=== PATIENT | female | born 1985 | race Caucasian/White ===

== ENCOUNTER 2017-07-28 11:38 | Emergency (ER) | payer OTHER ==
[~2017-07-28] VITALS: Ht 177.8 cm; Wt 93.0 kg
--- OUTSIDE RECORDS SUMMARY | 2017-07-28 11:42 | XMS REPORT | Clinical Summary ---
Author Author [facility] Organization [employer] Address Unknown Phone Unavailable Care Team Providers Care Claims Auditor Name Role Phone Santo Gay MD PCP Allergies Active Allergy Reactions Severity Noted Date Comments Prednisone Anaphylaxis High 03/24/2017 Methylprednisolone 05/20/2017 Current Medications Prescription Sig. Disp. Refills Start End Date Status Date metFORMIN (GLUCOPHAGE) Take 500 mg by mouth 2 Active 500 mg tablet (two) times a day with meals. For pcos NORGESTIMATE-ETHINYL Take by mouth daily. Active ESTRADIOL (TRINESSA, 28, ORAL) traMADol (ULTRAM) 50 mg Take 1-2 tablets by mouth 20 tablet 0 03/29/20 tablet every 6 hours as needed 17 17 for severe pain. ibuprofen (ADVIL,MOTRIN) Take 1 tablet (800 mg 21 tablet 0 03/24/20 04/23/20 800 MG tablet total) by mouth 3 (three) 17 17 times a day for 30 days. Active Problems Not on file Encounters Date Type Specialty Care Team Description 05/20/2017 Abstract Obstetrics and Gynecology Jihan Lester MD 03/24/2017 Emergency Emergency Medicine Germania Bhat MD Headache , unspecified headache type (Primary Dx) after 07/27/2016 Family History Medical History Relation Name Comments Breast cancer Maternal Grandmother Diabetes Maternal Grandmother Thyroid disease Maternal Grandmother Hypertension Mother Relation Name Status Comments Maternal Grandmother Mother Social History Tobacco Use Types Packs/Day Years Used Date Never Smoker Alcohol Use Drinks/Week oz/Week Comments No Sex Assigned at Date Recorded Not on file Last Filed Vital Signs Vital Sign Reading Time Taken Blood Pressure 118/67 03/24/2017 3:12 PM CDT Pulse 70 03/24/2017 3:12 PM CDT Temperature 36.6 C (97.9 F) 03/24/2017 3:12 PM CDT Respiratory Rate 18 03/24/2017 3:12 PM CDT Oxygen Saturation 99% 03/24/2017 3:12 PM CDT Inhaled Oxygen - - Concentration Weight - - Height 177.8 cm (5' 10") 03/24/2017 10:28 AM CDT Body Mass Index - - Plan of Treatment Health Maintenance Due Date Last Done Comments INFLUENZA VACCINE 01/25/2017 PAP SMEAR 09/07/2018 09/08/2015 Results * CT Head Wo Contrast (03/24/2017 1:39 PM) Specimen Performing Laboratory [facility] [address] [place] [address] Narrative EXAMINATION: CT HEAD WO CONTRAST CLINICAL HISTORY: HEADACHE COMPARISON:None TECHNIQUE: Noncontrast CT of the brain was performed from the skull base to the vertex. Both soft tissue and bone reconstruction algorithms are interpreted. CT imaging was performed with iterative reconstruction techniques and/or automated exposure control to reduce radiation dose. FINDINGS: No intracranial hemorrhage, extra-axial collection, or mass-effect is seen. No acute cortical infarct is identified. No hyperdense vessel is seen. Mucous retention cysts and bubbly secretions are noted within the right maxillary sinus. Mastoid air cells are clear. IMPRESSION: No acute intracranial abnormality identified. Bubbly secretions are noted within the right maxillary sinus. [facility]-[id number] Procedure Note Interface, Radiology Results Incoming - 03/24/2017 1:48 PM CDT EXAMINATION: CT HEAD WO CONTRAST CLINICAL HISTORY: HEADACHE COMPARISON: None TECHNIQUE: Noncontrast CT of the brain was performed from the skull base to the vertex. Both soft tissue and bone reconstruction algorithms are interpreted. CT imaging was performed with iterative reconstruction techniques and/or automated exposure control to reduce radiation dose. FINDINGS: No intracranial hemorrhage, extra-axial collection, or mass-effect is seen. No acute cortical infarct is identified. No hyperdense vessel is seen. Mucous retention cysts and bubbly secretions are noted within the right maxillary sinus. Mastoid air cells are clear. IMPRESSION: No acute intracranial abnormality identified. Bubbly secretions are noted within the right maxillary sinus. [id number] * Urinalysis screen and microscopy, with reflex to culture (03/24/2017 11:02 AM) Component Value Ref Range Specimen site Clean catch Color, UA Yellow Appearance, UA Slightly-Cloudy Specific gravity, UA 1.013 1.001 - 1.035 pH, UA 5.0 5.0 - 8.5 Protein, UA Negative Negative Glucose, UA Negative Negative Ketones, UA Negative Negative Bilirubin, UA Negative Negative Blood, UA Negative Negative Nitrite, UA Negative Negative Urobilinogen, UA Negative <2.0 Leukocyte esterase, UA Moderate (A) Negative Epithelial cells, UA Many /HPF Round epithelial cells, Few 0 - 1 /HPF UA WBC, UA 0-5 0 - 4 /HPF RBC, UA 0-5 0 - 2 /HPF Bacteria, UA Trace None seen Yeast, UA None seen Yeast with pseudohyphae, None seen UA Hyaline casts, UA 3-5 /LPF Specimen Performing Laboratory Urine [facility] DEPARTMENT OF PATHOLOGY AND GENOMIC MEDICINE [address] [place] [address] [place] [address] * Gram stain (03/24/2017 11:02 AM) Component Value Ref Range Gram stain result No WBC's Rare Gram positive rods Comment: Specimen Information Specimen Source: Urine Specimen Site: Clean catch Specimen Performing Laboratory Urine [facility] DEPARTMENT OF PATHOLOGY AND GENOMIC MEDICINE [address] [place] [address] * Urine culture (03/24/2017 11:02 AM) Component Value Ref Range Urine culture isolate Mixed Gram positive vipul 10-3 cfu/ml (A) Comment: Specimen Information Specimen Source: Urine Specimen Site: Clean catch Specimen Performing Laboratory Urine [facility] DEPARTMENT OF PATHOLOGY AND GENOMIC MEDICINE [address] [place] [address] * Estimated GFR (03/24/2017 10:35 AM) Component Value Ref Range GFR Non Af Amer 83 mL/min/1.73 m2 GFR Af Amer >90 mL/min/1.73 m2 Comment: Chronic kidney disease: <60 mL/min/1.73m2 Kidney failure: <15 mL/min/1.73m2 The estimated GFR is calculated from the IDMS-traceable Modification of Diet in Renal Disease Equation. The accuracy of the calculation is poor when the creatinine is normal. Calculated values >90 mL/min/1.73m2 are not reported. This equation has not been validated in children (<18 years), women, the elderly (>70 years), or ethnic groups other than Caucasians and Americans. Specimen Performing Laboratory Plasma specimen [facility] DEPARTMENT OF PATHOLOGY AND GENOMIC MEDICINE [address] [place] [address] [place] [address] * CBC with platelet and differential (03/24/2017 10:35 AM) Component Value Ref Range WBC 5.67 4.50 - 11.00 k/uL RBC 3.95 (L) 4.20 - 5.50 m/uL HGB 12.3 12.0 - 16.0 g/dL HCT 36.2 (L) 37.0 - 47.0 % MCV 91.6 82.0 - 100.0 fL MCH 31.1 27.0 - 34.0 pg MCHC 34.0 31.0 - 37.0 g/dL RDW - SD 42.6 37.0 - 55.0 fL MPV 10.1 8.8 - 13.2 fL Platelet count 224 150 - 400 k/uL Nucleated RBC 0.00 /100 WBC Neutrophils 59.4 39.0 - 69.0 % Lymphocytes 30.5 25.0 - 45.0 % Monocytes 5.3 0.0 - 10.0 % Eosinophils 3.9 0.0 - 5.0 % Basophils 0.7 0.0 - 1.0 % Immature granulocytes 0.2Comment: "Immature granulocytes" 0.0 - 1.0 % (promyelocytes, myelocytes, metamyelocytes) Specimen Performing Laboratory Blood [facility] DEPARTMENT OF PATHOLOGY AND GENOMIC MEDICINE [address] [place] [address] * hCG qualitative, serum screen (03/24/2017 10:35 AM) Component Value Ref Range hCG qualitative, serum Negative Specimen Performing Laboratory Blood [facility] DEPARTMENT OF PATHOLOGY AND [facility] [address] [place] [address] * Comprehensive metabolic panel (03/24/2017 10:35 AM) Component Value Ref Range Sodium 140 135 - 148 mEq/L Potassium 4.3 3.5 - 5.0 mEq/L Chloride 104 98 - 112 mEq/L CO2 24 24 - 31 mEq/L Anion gap 12 7 - 15 mEq/L Comment: Starting from September , anion gap calculation no longer incorporates potassium. Please note the change. BUN 14 6 - 20 mg/dL Creatinine 0.8 0.5 - 0.9 mg/dL Glucose 90 65 - 99 mg/dL Calcium 9.6 8.3 - 10.2 mg/dL Protein 7.9 6.3 - 8.3 g/dL Comment: 4.6-7.0 g/dL 1 week 4.4-7.6 g/dL 7 months-1year 5.1-7.3 g/dL 1-2 years 5.6-7.5 g/dL >3 years 6.0-8.0 g/dL 18-150 6.3-8.3 g/dL Albumin 4.5 3.5 - 5.0 g/dL A/G ratio 1.3 0.7 - 3.8 Alkaline phosphatase 48 35 - 104 U/L AST 15 10 - 35 U/L ALT 14 5 - 50 U/L Total bilirubin 0.8 0.0 - 1.2 mg/dL Specimen Performing Laboratory Plasma specimen [facility] DEPARTMENT OF PATHOLOGY AND GENOMIC MEDICINE [address] [place] [address] after 07/27/2016 Insurance Payer Benefit Subscriber ID Type Phone Address Plan / Group [employer] [id number] HMO,POS,EP O, MC/EC
[2017-07-28] MEDS ORDERED: SODIUM CHLORIDE 0.9% 1000ML 1,000 ML IV STA ×2 (12:06→16:47)
[2017-07-28] MEDS ORDERED: ONDANSETRON HCL INJ 2 MG/ML VIAL IV STA (12:06)
[2017-07-28] MEDS ORDERED: LOPERAMIDE HCL 2 MG CAP PO ONE (12:15)
[2017-07-28 14:00] LABS: BASOPHILS % 0.6 % (0.0-1.0); EOSINOPHILS # (AUTO) 0.1 (0.0-0.4); HEMATOCRIT 42.9 % (34.2-44.1); HEMOGLOBIN 14.2 g/dL (12.0-16.0); LYMPHOCYTES # (AUTO) 0.8 (1.0-3.2); MEAN CORPUSCULAR HGB CONC 33.1 g/dL (31-35); MEAN CORPUSCULAR VOLUME 90.7 fL (81-99); MONOCYTES # (AUTO) 0.3 (0.2-0.8); NEUTROPHILS # (AUTO) 2.1 (2.1-6.9); NEUTROPHILS % 63.4 % (38.7-80.0); PLATELET COUNT 191 x10e3/uL (140-360); RED BLOOD COUNT 4.73 x10e6/uL (3.6-5.1); RED CELL DISTRIBUTION WIDTH 12.2 % (11.7-14.4)
[2017-07-28 14:14] LABS: ALANINE AMINOTRANSFERASE 38 IU/L (0-55); ALBUMIN 4.2 g/dL (3.5-5.0); ALKALINE PHOSPHATASE 68 IU/L (40-150); ANION GAP 14.2 mmol/L (8-16); BLOOD UREA NITROGEN 12 mg/dL (7-26); BUN/CREATININE RATIO 15 (6-25); CALCIUM 9.7 mg/dL (8.4-10.2); CARBON DIOXIDE 22 mmol/L (22-29); CHLORIDE 108 mmol/L (98-107); EST GLOMERULAR FILTRATION RATE > 60 ML/MIN (60-); GLUCOSE 94 mg/dL (74-118); POTASSIUM 4.2 mmol/L (3.5-5.1); SODIUM 140 mmol/L (136-145)
[2017-07-28] MEDS ORDERED: DIPHENOXYLATE/ATROPINE TAB PO ONE (14:15)
[2017-07-28 15:42] LABS: BILIRUBIN,URINE 1+ (NEGATIVE); KETONES,URINE 3+ (NEGATIVE); LEUKOCYTE ESTERASE ,URINE 2+ (NEGATIVE); NITRITE,URINE NEGATIVE (NEGATIVE); PROTEIN,URINE DIPSTICK NEGATIVE (NEGATIVE); URINE UROBILINOGEN 0.2 mg/dL (0.2 - 1)
[2017-07-28 15:43] LABS: CLARITY,URINE SL CLOUDY (CLEAR); COLOR,URINE YELLOW (YELLOW)
[2017-07-28 15:57] LABS: EPITHELIAL CELLS,URINE MODERATE /LPF; RBC,URINE 0-5 /HPF (0-5)
[2017-07-28 15:58] LABS: TRANSITIONAL EPI CELLS,URINE MODERATE
[2017-07-28] MEDS ORDERED: KETOROLAC TROMETHAMINE 30 MG/ML VIAL IV STA (16:06)
[2017-07-28] MEDS ORDERED: DICYCLOMINE HCL 20 MG/2 ML VIAL IM ONE (16:15)
[2017-07-28] MEDS ORDERED: LEVOFLOXACIN 750MG/D5W 150ML 150 ML IV ONE (16:15)
[2017-07-28] MEDS ORDERED: DICYCLOMINE HCL 20 MG TAB PO ONE (16:15)
[2017-07-28] MEDS ORDERED: ZOFRAN4 MG SL (16:32)
[2017-07-28] MEDS ORDERED: MACROBID 100 M100 MG PO (16:32)
[2017-07-28] MEDS ORDERED: LOMOTIL TABLET1 EACH PO (16:32)
[2017-07-28] MEDS ORDERED: LEVSIN0.125 MG PO (16:37)
[2017-07-28] MEDS ORDERED: LEVOFLOXACIN 500 MG TAB PO ONE (16:45)
[2017-07-28] MEDS ORDERED: MORPHINE SULFATE 5 MG/ML VIAL IV ONE (16:45)
[2017-07-28] MEDS ORDERED: LEVOFLOXACIN 750MG/D5W 150ML 150 ML IV STA (16:47)
[2017-07-28] MEDS ORDERED: DIATRIZOATE MEGL/DIATRIZOA SOD 30 ML BTL PO ONE (17:04)
[2017-07-28] MEDS ORDERED: MORPHINE SULFATE 2 MG/ML SYR IV ONE (17:20)
--- NOTE | 2017-07-28 20:08 | Diagnostic Imaging Report ---
EXAMINATION: CT of the abdomen and pelvis with contrast. TECHNIQUE: Spiral CT images of the abdomen and pelvis were performed from the lung bases to the lesser trochanters after the intravenous administration of 100 cc of Isovue 370 and the oral administration of dilute Gastrografin. Coronal and sagittal reformatted images were obtained. COMPARISON: None. CLINICAL HISTORY:Severe diarrhea, nausea, suspected diverticulitis DISCUSSION: ABDOMEN/PELVIS: LOWER THORAX:Unremarkable. HEPATOBILIARY: No focal hepatic lesions. No intra or extrahepatic biliary ductal dilation. GALLBLADDER: Cholecystectomy clips SPLEEN: No splenomegaly. PANCREAS: No focal masses or ductal dilatation. ADRENALS: No adrenal nodules. KIDNEYS/URETERS: No hydronephrosis, stones, or solid mass lesions. PELVIC ORGANS/BLADDER: Bladder and uterus are unremarkable. No adnexal masses. PERITONEUM/RETROPERITONEUM: No free air or fluid. LYMPH NODES: No intra-abdominal, retroperitoneal, pelvic or inguinal lymphadenopathy. VESSELS: The celiac trunk,superior and inferior mesenteric and bilateral renal arteries are patent The portal, superior mesenteric and splenic veins are patent. GI TRACT: No bowel dilation or evidence of obstruction. Appendix is identified and normal in caliber. No pericolonic inflammatory changes. No significant diverticulosis or diverticulitis. BONES AND SOFT TISSUE: No aggressive lytic lesions. No soft tissue abnormalities. IMPRESSION: 1. No acute abdominopelvic abnormalities. Signed by: Dr. Victor Hugo Thurston M.D. on 07/28/2017 8:04 PM
[2017-07-28] MEDS ORDERED: TYLENOL # 31 EA PO (20:48)
[2017-07-28] MEDS ORDERED: SODIUM CHLORIDE 0.9% 50ML 50 ML ONE (21:03)
[2017-07-28] MEDS ORDERED: IOPAMIDOL 370 MG/ML 200 ML INFUS..BTL INJ ONE (21:03)
== END 2017-07-28 21:45 | disposition home or self-care (01) ==
LOC: ER 11:38
DX: R11.2 Nausea with vomiting, unspecified (principal); R11.14 Bilious vomiting; R19.7 Diarrhea, unspecified; E28.2 Polycystic ovarian syndrome
CPT/HCPCS: 36415; 74177; 80053; 81001; 84702; 85025; 87086; 99284; J0500; J1885; J2270; J2405; J7030; Q9967

== ENCOUNTER 2018-07-30 22:42 | Emergency (ER) | payer OTHER ==
[~2018-07-30] VITALS: Ht 177.8 cm; Wt 97.5 kg
[~2018-07-30 22:42] MED LIST: LEVSIN0.125 MG PO; LOMOTIL TABLET1 EACH PO; MACROBID 100 M100 MG PO; TYLENOL # 31 EA PO; ZOFRAN4 MG SL
--- OUTSIDE RECORDS SUMMARY | 2018-07-30 22:44 | XMS REPORT | Clinical Summary ---
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 For pcos Active NORGESTIMATE-ETHINYL Take by mouth 0 ESTRADIOL (TRINESSA, 28, daily. ORAL) Active Problems No known active problems Encounters Care Team Description Date Type Specialty Jihan Lester MD Cervical smear, as part of routine gynecological examination (Primary Dx); Amenorrhea; PCOS (polycystic ovarian syndrome) 07/27/2018 Office Visit Obstetrics and Gynecology after 07/29/2017 Family History Medical History Relation Name Comments Breast cancer Maternal Grandmother Diabetes Maternal Grandmother Thyroid disease Maternal Grandmother Hypertension Mother Relation Name Status Comments Maternal Grandmother Mother Social History Date Tobacco Use Types Packs/Day Years Used Former Smoker Smokeless Tobacco: Never Used Alcohol Use Drinks/Week oz/Week Comments No Alcohol Habits Answer Date Recorded How often do you have a drink containing alcohol? Never 07/27/2018 How many drinks containing alcohol do you have on Not asked a typical day when you are drinking? How often do you have six or more drinks on one Not asked occasion? Sex Assigned at Date Recorded Not on file Industry Job Start Date Occupation Not on file Not on file Not on file Travel End Travel History Travel Start No recent travel history available. Last Filed Vital Signs Time Taken Vital Sign Reading 07/27/2018 2:00 PM [facility] Blood Pressure 123/85 07/27/2018 2:00 PM [facility] Pulse 56 - Temperature - - Respiratory Rate - - Oxygen Saturation - - Inhaled Oxygen - Concentration 07/27/2018 2:00 PM [facility] Weight 98 kg (216 lb) 07/27/2018 2:00 PM [facility] Height 177.8 cm (5' 10") 07/27/2018 2:00 PM [facility] Body Mass Index 30.99 Plan of Treatment Health Maintenance Due Date Last Done Comments CERVICAL CANCER SCREENING 09/07/2018 09/08/2015 INFLUENZA VACCINE Completed 03/27/2018 Procedures Comments Procedure Name Priority Date/Time Associated Diagnosis PROLACTIN LEVEL Routine 07/27/2018 Amenorrhea 3:03 PM [facility] PCOS (polycystic ovarian syndrome) TSH REFLEX TO T4F Routine 07/27/2018 Amenorrhea 3:03 PM [facility] PCOS (polycystic ovarian syndrome) FOLLICLE STIMULATING Routine 07/27/2018 Amenorrhea HORMONE 3:03 PM [facility] PCOS (polycystic ovarian syndrome) HCG QUANTITATIVE, SERUM Routine 07/27/2018 Amenorrhea 3:03 PM [facility] PCOS (polycystic ovarian syndrome) after 07/29/2017 Results * TSH reflex to T4 (07/27/2018 3:03 PM [facility]) TSH reflex to FT4 1.63 mIU/L [facility] Comment: [place] Reference Range > or=20 Years0.40-4.50 Ranges First trimester0.26-2.66 Second trimester 0.55-2.73 Third trimester0.43-2.91 Specimen Blood Resulting Agency Comment Performing Organization Information: Site ID: [id number] Name: [facility] Address: [address] [place] [phone] Director: Tawny Erwin Performing Organization Address City/State/Zipcode Phone Number [employer] [address] [address] * Prolactin level (07/27/2018 3:03 PM [facility]) Prolactin 4.2 ng/mL [facility] Comment: [place] Refere nce Range Females Non- 3.0-30.0 10.0-209.0 Postmenopausal 2.0-20.0 Specimen Blood Resulting Agency Comment Performing Organization Information: Site ID: [id number] Name: [facility] Address: [address] [place] [phone] Director: Tawny Erwin Performing Organization Address [facility] [place] Phone Number [employer] [address] [address] * hCG quantitative, serum (07/27/2018 3:03 PM [facility]) hCG quantitative, serum <2 mIU/mL [facility] Comment: [place] Reference Range Non or premenopausal<5 Postmenopausal <10 Values from different assay methods may vary. The use of this assay to monitor or to diagnose patients with cancer or any condition unrelated to has not been cleared or approved by the FDA or the exchange trouble shooter of the assay. Specimen Blood Resulting Agency Comment Performing Organization Information: Site ID: [id number] Name: [facility] Address: [address] [place] [phone] Director: Tawny Erwin Performing Organization Address [facility] [place] Phone Number [employer] [address] [address] * Follicle stimulating hormone (07/27/2018 3:03 PM [facility]) Follicle stimulating 8.7 mIU/mL [facility] hormone Comment: [place] Reference Range Follicular Phase 2.5-10.2 Mid-cycle Peak 3.1-17.7 Luteal Phase 1.5- 9.1 Postmenopausal 23.0-116.3 Specimen Blood Resulting Agency Comment Performing Organization Information: Site ID: [id number] Name: [facility] Address: [address] [place] [phone] Director: Tawny Erwin Performing Organization Address [facility] [place] Phone Number [employer] [place] [phone] after 07/29/2017 Insurance Payer Benefit Subscriber ID Type Phone Address Plan / Group [facility] xxxxxxxxx HMO/PPO THCARE CHOICE/CHO ICE + Advance Directives Patient has advance care planning documents on file. For more information, marcos mead contact: Nitesh Baxter [address] [place] [address]
--- OUTSIDE RECORDS SUMMARY | 2018-07-30 22:44 | XMS REPORT ---
Author [facility] Address Unknown Phone Unavailable Care Team Providers Care Director Of Retail Operations Name Role Phone DELILAH Rosita WILCOX Unavailable Unavailable Problems This patient has no known problems. Allergies, Adverse Reactions, Alerts This patient has no known allergies or adverse reactions. Medications This patient has no known medications. Results Test Description Test Time Test Comments Text Results Atomic Results Result Comments CT ABDOMEN/PELVIS W [place] [address] Patient Name: NEMO SHEEHAN MR #: [id number] : 1985 Age/Sex: 32/F Req #: [id number] Adm Physician: Ordered by: LYNDA RAND TELEPHONER Report #: [id number] Location: ER Room/Bed: Procedure: [id number] CT/CT ABDOMEN/PELVIS W Exam Date: 07/28/17 Exam Time: 1825 REPORT STATUS: Signed EXAMINATION: CT of the abdomen and pelvis with contrast. TECHNIQUE: Spiral CT images of the abdomen and pelvis were performed from the lung bases to the lesser trochanters after the intravenous administration of 100 cc of Isovue 370 and the oral administration of dilute Gastrografin. Coronal and sagittal reformatted images were obtained. COMPARISON: None. CLINICAL HISTORY:Severe diarrhea, nausea, suspected diverticulitis DISCUSSION: ABDOMEN/PELVIS: LOWER THORAX:Unremarkable. HEPATOBILIARY: No focal hepatic lesions. No intra or extrahepatic biliary ductal dilation. GALLBLADDER: Cholecystectomy clips SPLEEN: No splenomegaly. PANCREAS: No focal masses or ductal dilatation. ADRENALS: No adrenal nodules. KIDNEYS/URETERS: No hydronephrosis, stones, or solid mass lesions. PELVIC ORGANS/BLADDER: Bladder and uterus are unremarkable. No adnexal masses. PERITONEUM/RETROPERITONEUM: No free air or fluid. LYMPH NODES: No intra-abdominal, retroperitoneal, pelvic or inguinal lymphadenopathy. VESSELS: The celiac trunk,superior and inferior mesenteric and bilateral renal arteries are patent The portal, superior mesenteric and splenic veins are patent. GI TRACT: No bowel dilation or evidence of obstruction. Appendix is identified and normal in caliber. No pericolonic inflammatory changes. No significant diverticulosis or diverticulitis. BONES AND SOFT TISSUE: No aggressive lytic lesions. No soft tissue abnormalities. IMPRESSION: 1. No acute abdominopelvic abnormalities. Signed by: Dr. Paul gauthier M.D. on 07/28/2017 8:04 PM Dictated By: PAUL PINTO MD 03 Transcribed By: SAGE on 07/28/172003 COPY TO: LYNDA RAND NP
[2018-07-31 00:43] LABS: CLARITY,URINE CLEAR (CLEAR); COLOR,URINE YELLOW (YELLOW); LEUKOCYTE ESTERASE ,URINE NEGATIVE (NEGATIVE); NITRITE,URINE NEGATIVE (NEGATIVE); PROTEIN,URINE DIPSTICK NEGATIVE (NEGATIVE)
[2018-07-31 00:44] LABS: BILIRUBIN,URINE NEGATIVE (NEGATIVE); KETONES,URINE NEGATIVE (NEGATIVE); URINE UROBILINOGEN 0.2 mg/dL (0.2 - 1)
[2018-07-31 00:45] LABS: EPITHELIAL CELLS,URINE FEW /LPF; RBC,URINE 0-5 /HPF (0-5); WBC,URINE (MAN) 0-5 /HPF (0-5)
[2018-07-31] MEDS ORDERED: HYDROMORPHONE 1MG/1ML INJ IM STA (02:15)
[2018-07-31] MEDS ORDERED: ONDANSETRON HCL 4 MG ORAL DISINTEGRATING TAB PO ONE (02:15)
[2018-07-31] MEDS ORDERED: HYDROMORPHONE 2MG/ML 2 MG/ML ML IM ONE (02:30)
[2018-07-31 03:31] VITALS: BP 117/76
== END 2018-07-31 03:39 | disposition home or self-care (01) ==
LOC: ER 22:42
DX: R10.2 Pelvic and perineal pain (principal); R11.0 Nausea; N83.202 Unspecified ovarian cyst, left side; N83.201 Unspecified ovarian cyst, right side
CPT/HCPCS: 81001; 81025; 99283; J1170; Q0162

== ENCOUNTER 2024-02-19 11:24 | Emergency (ER) | payer BC, OTHER ==
[~2024-02-19] VITALS: Ht 177.8 cm; Wt 104.3 kg
[2024-02-19 11:25] VITALS: TEMP 98.6
[2024-02-19] MEDS: SODIUM CHLORIDE 0.9% 1000ML 1,000 ML IV ONE (11:50)
[2024-02-19] MEDS: ONDANSETRON HCL INJ 2MG/ML 2ML 2 MG/ML VIAL IV STA (11:54)
[2024-02-19] MEDS: KETOROLAC TROMETHAMINE 30 MG/ML VIAL IV STA (11:55)
[2024-02-19] MEDS: ACETAMINOPHEN 325 MG TAB PO ONE (11:55)
[2024-02-19] MEDS: PROCHLORPERAZINE EDISYLATE 5 MG/ML VIAL IV ONE (12:10)
[2024-02-19] MEDS ORDERED: PROCHLORPERAZINE EDISYLATE 5 MG/ML VIAL IV ONE (12:30)
[2024-02-19 13:18] VITALS: PULSE 72; RESP 16; O2SAT 97
[2024-02-19 13:21] VITALS: TEMP 98.2
== END 2024-02-19 13:27 | disposition home or self-care (01) ==
LOC: ER 11:31
DX: R09.89 Other specified symptoms and signs involving the circulatory and respiratory systems (principal); U07.1 COVID-19; R53.1 Weakness; R51.9 Headache, unspecified; Z98.84 Bariatric surgery status
CPT/HCPCS: 87400; 99283; J0780; J1885; J2405; U0002

== ENCOUNTER 2024-08-21 18:02 | Inpatient (IN) | payer BC ==
[~2024-08-21] VITALS: Ht 180.3 cm; Wt 108.9 kg
[2024-08-21 18:35] VITALS: TEMP 97.9
[2024-08-21] MEDS: Morphine 4mg INJECTION 4 MG/ML INJ IV ONE (19:53)
[2024-08-21] MEDS: ONDANSETRON HCL INJ 2MG/ML 2ML 2 MG/ML VIAL IV STA (19:53)
[2024-08-21 19:57] LABS: BASOPHILS % 0.6 % (0.0-1.0); EOSINOPHILS # (AUTO) 0.3 (0.0-0.4); EOSINOPHILS % 3.6 % (0.0-6.0); HEMATOCRIT 37.8 % (34.2-44.1); HEMOGLOBIN 12.5 g/dL (12.0-16.0); LYMPHOCYTES # (AUTO) 2.3 (1.0-3.2); LYMPHOCYTES % 34.1 % (18.0-39.1); MEAN CORPUSCULAR HEMOGLOBIN 31.4 pg (28-32); MEAN CORPUSCULAR HGB CONC 33.1 g/dL (31-35); MONOCYTES # (AUTO) 0.5 (0.2-0.8); MONOCYTES % 7.6 % (4.4-11.3); NEUTROPHILS # (AUTO) 3.7 (2.1-6.9); NEUTROPHILS % 53.8 % (38.7-80.0); PLATELET COUNT 241 x10e3/uL (140-360); RED BLOOD COUNT 3.98 x10e6/uL (3.6-5.1); RED CELL DISTRIBUTION WIDTH 13.1 % (11.7-14.4); WHITE BLOOD COUNT 6.87 x10e3/uL (4.8-10.8)
[2024-08-21 20:16] LABS: ANION GAP 13.2 mmol/L (8-16); CALCIUM 9.1 mg/dL (8.4-10.2); CREATININE, SERUM 0.84 mg/dL (0.57-1.11); POTASSIUM 4.2 mmol/L (3.5-5.1)
[2024-08-21] MEDS ORDERED: SODIUM CHLORIDE FLUSH 10 ML SYR INJ PRN (20:45)
[2024-08-21 20:50] VITALS: PULSE 70; RESP 18; O2SAT 97
[2024-08-21 21:45] VITALS: PULSE 72; RESP 18
[2024-08-21 21:47] LABS: CLARITY,URINE CLEAR (CLEAR); COLOR,URINE YELLOW (YELLOW)
[2024-08-21 21:48] LABS: BILIRUBIN,URINE NEGATIVE (NEGATIVE); GLUCOSE, URINE NEGATIVE (NEGATIVE); KETONES,URINE NEGATIVE (NEGATIVE); LEUKOCYTE ESTERASE ,URINE NEGATIVE (NEGATIVE); NITRITE,URINE NEGATIVE (NEGATIVE); PH,URINE 6 (5 - 7); PROTEIN,URINE DIPSTICK NEGATIVE (NEGATIVE); URINE UROBILINOGEN 0.2 mg/dL (0.2 - 1)
[2024-08-21 21:50] LABS: BACTERIA,URINE FEW /HPF; EPITHELIAL CELLS,URINE RARE /LPF; MUCUS,URINE MODERATE; RBC,URINE 0-5 /HPF (0-5); WBC,URINE (MAN) 0-5 /HPF (0-5)
[2024-08-21 22:10] VITALS: BP 113/62; PULSE 68; RESP 18; TEMP 97.3; O2SAT 98
[2024-08-21] MEDS: KETOROLAC TROMETHAMINE 30 MG/ML VIAL IV PRN (22:22)
[2024-08-21] MEDS ORDERED: FIORICET 50-301 EACH (23:54)
[2024-08-21] MEDS ORDERED: LEXAPRO20 MG PO (23:54)
[2024-08-21 23:57] VITALS: PULSE 60; RESP 18; TEMP 97.3; O2SAT 98
[2024-08-22] VITALS (7 sets, daily range): BP systolic 104–120; BP diastolic 50–68; PULSE 60–74; RESP 17–18; TEMP 97.2–98.1; O2SAT 94–100
[2024-08-22] MEDS ORDERED: HYOSCYAMINE 0.125 MG TAB PO PRN (05:00)
[2024-08-22] MEDS ORDERED: DIAZEPAM 2 MG TAB PO PRN (05:15)
[2024-08-22] MEDS: NITROFURANTOIN MACROCRYSTALS 100 MG CAP PO SCH (11:45)
[2024-08-22] MEDS: ESCITALOPRAM OXALATE 10 MG TAB PO SCH (11:46)
[2024-08-22] MEDS: ONDANSETRON HCL INJ 2MG/ML 2ML 2 MG/ML VIAL IV PRN (13:10)
[2024-08-22] MEDS: Morphine 4mg INJECTION 4 MG/ML INJ IV PRN (13:10)
[2024-08-22 17:49] LABS: INR 0.9; PARTIAL THROMBOPLASTIN TIME 25.7 seconds (23.8-35.5); PROTHROMBIN TIME 12.7 seconds (11.9-14.5)
[2024-08-22] MEDS ORDERED: DEXAMETHASONE SOD PHOS INJ 4 MG/ML SDV IV SCH (18:00)
[2024-08-22] MEDS: DIAZEPAM 5 MG TAB PO PRN (23:57)
[2024-08-23] VITALS (10 sets, daily range): BP systolic 101–119; BP diastolic 55–69; PULSE 58–80; RESP 17–20; TEMP 97.3–98.8; O2SAT 95–99
[2024-08-23] MEDS ORDERED: ROCURONIUM BROMIDE 1 ML IV ONE (10:30)
[2024-08-23] MEDS ORDERED: MIDAZOLAM HCL 2 MG/2 ML VIAL ONE (10:30)
[2024-08-23] MEDS ORDERED: LIDOCAINE HCL 2% LOCAL INJ 5 ML SDV VIAL INJ ONE (10:30)
[2024-08-23] MEDS ORDERED: FENTANYL CITRATE/PF 100MCG/2 ML INJ ONE ×2 (10:30→12:53)
[2024-08-23] MEDS ORDERED: SEVOFLURANE INHAL SOLN 250 ML PEN BTL ONE (10:31)
[2024-08-23] MEDS ORDERED: ACETAMINOPHEN 1000 MG/100 ML 100 ML IV ONE (10:31)
[2024-08-23] MEDS ORDERED: PROPOFOL IV EMULSION 10 MG/ML 20 ML VIAL ONE (10:31)
[2024-08-23] MEDS ORDERED: KETAMINE 50MG/5ML SYR ONE (10:31)
[2024-08-23] MEDS ORDERED: FAMOTIDINE 20 MG/2 ML VIAL IV ONE (10:34)
[2024-08-23] MEDS ORDERED: ONDANSETRON HCL INJ 2MG/ML 2ML 2 MG/ML VIAL ONE (10:34)
[2024-08-23] MEDS ORDERED: Vancomycin IV 1 GM VIAL ONE (11:10)
[2024-08-23] MEDS ORDERED: DEXAMETHASONE SOD PHOS INJ 4 MG/ML SDV ONE (11:10)
[2024-08-23] MEDS ORDERED: BUPIVACAINE LIPOSOME/PF 266 MG/20 ML IJ ONE (11:29)
[2024-08-23] MEDS ORDERED: LACTATED RINGER'S 1,000 ML ONE (11:52)
[2024-08-23] MEDS ORDERED: SUGAMMADEX SODIUM 200 MG/2 ML VIAL IV ONE (12:41)
[2024-08-23] MEDS ORDERED: HYDROCODON-ACE1 EA12 PO (13:14)
[2024-08-23] MEDS ORDERED: MORPHINE SULFATE 5 MG/ML VIAL IV PRN (13:15)
[2024-08-23] MEDS ORDERED: CARISOPRODOL 350 MG TAB PO PRN (13:15)
[2024-08-23] MEDS ORDERED: ONDANSETRON HCL INJ 2MG/ML 2ML 2 MG/ML VIAL IV PRN (13:15)
[2024-08-23] MEDS ORDERED: ACETAMINOPHEN 325 MG TAB PO PRN (13:15)
[2024-08-23] MEDS ORDERED: OXYCODONE/ACETAMINOPHEN 5-325 1 EACH TABLET PO PRN ×2 (13:15→13:30)
[2024-08-23] MEDS ORDERED: PROMETHAZINE HCL (IM) 25 MG/ML VIAL IM PRN (13:15)
[2024-08-23] MEDS ORDERED: MAGNESIUM/ALUMINUM/SIMETHICONE 30 ML UDC PO PRN (13:15)
[2024-08-23] MEDS: FENTANYL CITRATE/PF 100MCG/2 ML INJ ONE (13:28)
[2024-08-23] MEDS: LACTATED RINGER'S 1,000 ML IV SCH (14:19)
[2024-08-23] MEDS: HYDROMORPHONE 2MG/ML IV PRN (15:02)
[2024-08-23] MEDS ORDERED: ZOLPIDEM TARTRATE 5 MG TAB PO PRN (21:00)
[2024-08-24] VITALS: BP 107/65; PULSE 70; RESP 20; TEMP 97.5; O2SAT 99
[2024-08-24 05:02] VITALS: BP 112/62; PULSE 66; RESP 19; TEMP 98.6; O2SAT 100
[2024-08-24 08:27] VITALS: BP 97/55; PULSE 71; RESP 20; TEMP 97.9; O2SAT 98
[2024-08-24 09:47] VITALS: BP 97/55; PULSE 71; RESP 20; TEMP 97.9; O2SAT 98
[2024-08-24 12:13] VITALS: BP 110/67; PULSE 68; RESP 20; TEMP 97.9; O2SAT 99
== END 2024-08-24 12:45 | disposition home or self-care (01) | DRG 519 ==
LOC: ER 19:22 → ERHOLD 20:42 → MED/SURG2 22:02 → OBSVTOIN 08-23 13:25
PROVIDERS: ADMIT Internal Medicine; ATTEND Internal Medicine
PROC: 0T9B70Z Drainage of Bladder with Drainage Device, Via Natural or Artificial Opening (ICD-10-PCS; 2024-08-22)
PROC: 01NB0ZZ Release Lumbar Nerve, Open Approach (ICD-10-PCS; 2024-08-23)
PROC: 0SB20ZZ Excision of Lumbar Vertebral Disc, Open Approach (ICD-10-PCS; principal; 2024-08-23 11:19)
DX: M51.16 Intervertebral disc disorders with radiculopathy, lumbar region (principal); N39.0 Urinary tract infection, site not specified; M48.062 Spinal stenosis, lumbar region with neurogenic claudication; F32.A Depression, unspecified; R33.9 Retention of urine, unspecified; K58.0 Irritable bowel syndrome with diarrhea; F41.9 Anxiety disorder, unspecified; E66.9 Obesity, unspecified; Z68.33 Body mass index [BMI] 33.0-33.9, adult; Z98.84 Bariatric surgery status; Z90.710 Acquired absence of both cervix and uterus; Z88.8 Allergy status to other drugs, medicaments and biological substances
CPT/HCPCS: 36415; 72020; 72148; 80048; 81001; 84702; 85025; 85610; 85730; 86850; 86900; 88304; 94799; 96361; 99284; G0378; J1100; J1885; J2003; J2250; J2270; J2405

== ENCOUNTER 2024-09-01 14:46 | Observation (INO) | payer BC ==
[~2024-09-01] VITALS: Ht 180.3 cm; Wt 108.9 kg
[~2024-09-01 14:46] MED LIST changes: +FIORICET 50-301 EACH; +HYDROCODON-ACE1 EA12 PO; +LEXAPRO20 MG PO
[2024-09-01] MEDS: DEXAMETHASONE SOD PHOS 10 MG/1 ML VIAL IV ONE (16:46)
[2024-09-01] MEDS: HYDROMORPHONE 1MG/1ML INJ IV STA (17:50)
[2024-09-01] MEDS ORDERED: ONDANSETRON HCL INJ 2MG/ML 2ML 2 MG/ML VIAL ONE (17:51)
[2024-09-01] MEDS: SODIUM CHLORIDE 0.9% 1000ML 1,000 ML IV STA (17:51)
[2024-09-01] MEDS: ONDANSETRON HCL INJ 2MG/ML 2ML 2 MG/ML VIAL IV STA (18:01)
[2024-09-01 18:13] LABS: BASOPHILS % 0.6 % (0.0-1.0); EOSINOPHILS # (AUTO) 0.2 (0.0-0.4); EOSINOPHILS % 4.4 % (0.0-6.0); HEMATOCRIT 34.3 % (34.2-44.1); HEMOGLOBIN 11.4 g/dL (12.0-16.0); LYMPHOCYTES # (AUTO) 1.6 (1.0-3.2); LYMPHOCYTES % 29.4 % (18.0-39.1); MEAN CORPUSCULAR HEMOGLOBIN 31.6 pg (28-32); MEAN CORPUSCULAR HGB CONC 33.2 g/dL (31-35); MONOCYTES # (AUTO) 0.3 (0.2-0.8); MONOCYTES % 5.3 % (4.4-11.3); NEUTROPHILS # (AUTO) 3.2 (2.1-6.9); NEUTROPHILS % 60.1 % (38.7-80.0); PLATELET COUNT 252 x10e3/uL (140-360); RED BLOOD COUNT 3.61 x10e6/uL (3.6-5.1); RED CELL DISTRIBUTION WIDTH 13.1 % (11.7-14.4); WHITE BLOOD COUNT 5.27 x10e3/uL (4.8-10.8)
[2024-09-01 18:29] LABS: ALBUMIN 3.5 g/dL (3.5-5.0); ALBUMIN/GLOBULIN RATIO 0.9 (0.8-2.0); ANION GAP 15.3 mmol/L (8-16); BILIRUBIN,TOTAL 0.9 mg/dL (0.2-1.2); CALCIUM 9.3 mg/dL (8.4-10.2); CREATININE, SERUM 0.78 mg/dL (0.57-1.11); POTASSIUM 4.3 mmol/L (3.5-5.1); TOTAL PROTEIN 7.2 g/dL (6.5-8.1)
[2024-09-01] MEDS ORDERED: HYDROMORPHONE 1MG/1ML INJ IV PRN (19:30)
[2024-09-01 19:45] VITALS: PULSE 57; RESP 18; TEMP 98.8
[2024-09-01] MEDS: SODIUM CHLORIDE 0.9% 1000ML 1,000 ML IV SCH (19:47)
[2024-09-01 20:20] VITALS: BP 110/56; PULSE 62; RESP 18; TEMP 98; O2SAT 100
[2024-09-01] MEDS: HYDROMORPHONE 2MG/ML IV PRN (23:01)
[2024-09-01] MEDS: ONDANSETRON HCL INJ 2MG/ML 2ML 2 MG/ML VIAL IV PRN (23:02)
[2024-09-02] VITALS (7 sets, daily range): BP systolic 111–139; BP diastolic 54–82; PULSE 60–84; RESP 16–20; TEMP 97.5–98.7; O2SAT 97–100
[2024-09-02 06:01] LABS: BASOPHILS % 0.1 % (0.0-1.0); EOSINOPHILS % 0.1 % (0.0-6.0); HEMOGLOBIN 11.6 g/dL (12.0-16.0); LYMPHOCYTES # (AUTO) 0.9 (1.0-3.2); MEAN CORPUSCULAR HEMOGLOBIN 32.1 pg (28-32); MEAN CORPUSCULAR HGB CONC 33.1 g/dL (31-35); MONOCYTES # (AUTO) 0.4 (0.2-0.8); MONOCYTES % 6.2 % (4.4-11.3); NEUTROPHILS # (AUTO) 5.7 (2.1-6.9); NEUTROPHILS % 80.3 % (38.7-80.0); PLATELET COUNT 279 x10e3/uL (140-360); RED BLOOD COUNT 3.61 x10e6/uL (3.6-5.1); WHITE BLOOD COUNT 7.09 x10e3/uL (4.8-10.8)
[2024-09-02 06:49] LABS: ALBUMIN 3.2 g/dL (3.5-5.0); ALBUMIN/GLOBULIN RATIO 0.9 (0.8-2.0); ANION GAP 13.4 mmol/L (8-16); BILIRUBIN,TOTAL 0.4 mg/dL (0.2-1.2); CALCIUM 8.8 mg/dL (8.4-10.2); CREATININE, SERUM 0.81 mg/dL (0.57-1.11); POTASSIUM 4.4 mmol/L (3.5-5.1); TOTAL PROTEIN 6.7 g/dL (6.5-8.1)
[2024-09-02] MEDS: ESCITALOPRAM OXALATE 10 MG TAB PO SCH (08:38)
[2024-09-02] MEDS: DEXAMETHASONE SOD PHOS INJ 4 MG/ML SDV IV SCH (08:38)
[2024-09-02] MEDS: PREGABALIN 50 MG CAP PO SCH (08:38)
[2024-09-02] MEDS: DIAZEPAM 5 MG TAB PO PRN (08:39)
[2024-09-03 04:00] VITALS: BP 105/64; PULSE 86; RESP 20; TEMP 98.6; O2SAT 99
[2024-09-03 08:02] VITALS: BP 110/67; PULSE 58; RESP 20; TEMP 98.2; O2SAT 98
[2024-09-03 08:45] VITALS: BP 110/67; PULSE 58; RESP 20; TEMP 98.2; O2SAT 98
[2024-09-03] MEDS: PREGABALIN 25 MG CAP PO SCH (08:47)
[2024-09-03 11:45] VITALS: BP 110/64; PULSE 62; RESP 18; TEMP 97.5; O2SAT 98
[2024-09-03 16:20] VITALS: BP 135/74; PULSE 62; RESP 18; TEMP 98.2; O2SAT 99
== END 2024-09-03 20:30 | disposition home or self-care (01) ==
LOC: ER 15:30 → ERHOLD 19:21 → MED/SURG2 20:57
PROVIDERS: ADMIT Internal Medicine; ATTEND Internal Medicine
DX: M54.32 Sciatica, left side (principal); D64.9 Anemia, unspecified; F41.9 Anxiety disorder, unspecified; E66.9 Obesity, unspecified; R79.89 Other specified abnormal findings of blood chemistry; Z98.890 Other specified postprocedural states; F32.A Depression, unspecified; Z79.899 Other long term (current) drug therapy
CPT/HCPCS: 36415 ×2; 72131; 80053 ×2; 85025 ×2; 99284; G0378 ×3; J1100 ×3; J1170 ×2; J1171; J2405; J7030 ×2

== ENCOUNTER 2024-10-02 14:44 | Emergency (ER) | payer BC ==
[~2024-10-02] VITALS: Ht 180.3 cm; Wt 108.9 kg
[2024-10-02] MEDS ORDERED: BELLADONNA ALK/PHENOBARBITAL 5 ML UDC PO STA (14:56)
[2024-10-02 14:59] VITALS: TEMP 98.1
[2024-10-02] MEDS ORDERED: LIDOCAINE VISC 2% SOLN 15 ML UDC PO ONE (15:00)
[2024-10-02] MEDS ORDERED: MAGNESIUM/ALUMINUM/SIMETHICONE 30 ML UDC PO ONE (15:00)
[2024-10-02 15:05] LABS: BASOPHILS # (AUTO) 0.1 (0.0-0.1); BASOPHILS % 0.7 % (0.0-1.0); EOSINOPHILS # (AUTO) 0.4 (0.0-0.4); EOSINOPHILS % 5.9 % (0.0-6.0); HEMATOCRIT 37.5 % (34.2-44.1); HEMOGLOBIN 12.6 g/dL (12.0-16.0); LYMPHOCYTES # (AUTO) 1.5 (1.0-3.2); LYMPHOCYTES % 21.2 % (18.0-39.1); MEAN CORPUSCULAR HEMOGLOBIN 32.2 pg (28-32); MEAN CORPUSCULAR HGB CONC 33.6 g/dL (31-35); MEAN CORPUSCULAR VOLUME 95.9 fL (81-99); MONOCYTES # (AUTO) 0.3 (0.2-0.8); MONOCYTES % 4.1 % (4.4-11.3); NEUTROPHILS # (AUTO) 4.6 (2.1-6.9); PLATELET COUNT 224 x10e3/uL (140-360); RED BLOOD COUNT 3.91 x10e6/uL (3.6-5.1); RED CELL DISTRIBUTION WIDTH 13.6 % (11.7-14.4); WHITE BLOOD COUNT 6.83 x10e3/uL (4.8-10.8)
[2024-10-02] MEDS: DICYCLOMINE HCL 20 MG/2 ML VIAL IM ONE (15:09)
[2024-10-02] MEDS: ONDANSETRON HCL INJ 2MG/ML 2ML 2 MG/ML VIAL IV STA (15:09)
[2024-10-02 15:10] LABS: BILIRUBIN,URINE SMALL (NEGATIVE); CLARITY,URINE SL CLOUDY (CLEAR); COLOR,URINE YELLOW (YELLOW); GLUCOSE, URINE NEGATIVE (NEGATIVE); KETONES,URINE NEGATIVE (NEGATIVE); LEUKOCYTE ESTERASE ,URINE NEGATIVE (NEGATIVE); NITRITE,URINE NEGATIVE (NEGATIVE); PH,URINE 5.5 (5 - 7); PROTEIN,URINE DIPSTICK NEGATIVE (NEGATIVE); URINE UROBILINOGEN 0.2 mg/dL (0.2 - 1)
[2024-10-02 15:11] LABS: BACTERIA,URINE MODERATE /HPF; EPITHELIAL CELLS,URINE MANY /LPF; RBC,URINE 0-5 /HPF (0-5); WBC,URINE (MAN) 0-5 /HPF (0-5)
[2024-10-02 15:12] LABS: MUCUS,URINE MODERATE
[2024-10-02] MEDS: DONNATAL/LIDOCAINE/MAALOX 30 ML SUSP PO ONE (15:17)
[2024-10-02 15:34] LABS: ALBUMIN 3.6 g/dL (3.5-5.0); ANION GAP 14.1 mmol/L (8-16); BILIRUBIN,TOTAL 0.5 mg/dL (0.2-1.2); CALCIUM 9.1 mg/dL (8.4-10.2); CREATININE, SERUM 0.82 mg/dL (0.57-1.11); POTASSIUM 4.1 mmol/L (3.5-5.1); TOTAL PROTEIN 7.1 g/dL (6.5-8.1)
[2024-10-02 15:40] LABS: TROPONIN I 0.004 ng/mL (0-0.300)
[2024-10-02] MEDS ORDERED: IOPAMIDOL 370 MG/ML 100 ML INFUS..BTL INJ ONE (15:43)
[2024-10-02] MEDS: FENTANYL CITRATE/PF 100MCG/2 ML INJ IV PRN (17:07)
[2024-10-02 17:38] VITALS: PULSE 60; RESP 16; O2SAT 99
[2024-10-02 17:45] VITALS: TEMP 98.1
== END 2024-10-02 17:47 | disposition home or self-care (01) ==
LOC: ER 14:49
DX: R10.13 Epigastric pain (principal); F32.A Depression, unspecified; M54.9 Dorsalgia, unspecified; G89.29 Other chronic pain; E28.2 Polycystic ovarian syndrome; Z98.84 Bariatric surgery status
CPT/HCPCS: 36415; 71045; 74177; 80053; 81001; 82550; 83690; 84484; 85025; 93005; 99284; J0500; J2405; J2470; J3010; Q9967

== ENCOUNTER 2024-10-27 15:28 | Emergency (ER) | payer BC ==
[~2024-10-27] VITALS: Ht 180.3 cm; Wt 108.9 kg
[2024-10-27 18:51] VITALS: PULSE 62; RESP 16; TEMP 98.3
[2024-10-27] MEDS: ORPHENADRINE CITRATE 30 MG/ML VIAL IM ONE (18:53)
[2024-10-27] MEDS: HYDROCODONE/APAP 10MG-325MG TAB PO ONE (18:53)
[2024-10-27] MEDS: KETOROLAC TROMETHAMINE 60 MG/2 ML VIAL IM ONE (18:54)
[2024-10-27] MEDS ORDERED: NAPROSYN500 MG PO (20:11)
[2024-10-27] MEDS ORDERED: ORPHENADRINE C100 MG PO (20:11)
[2024-10-27 20:28] VITALS: BP 100/65; PULSE 60; RESP 19; TEMP 98.9; O2SAT 99
[2024-10-29] MEDS ORDERED: PANTOPRAZOLE SO40 MG PO (13:34)
[2024-10-29] MEDS ORDERED: ONDANSETRON ODT4 MG PO (13:34)
[2024-10-29] MEDS ORDERED: DICYCLOMINE HCL20 MG PO (13:34)
== END 2024-10-27 20:36 | disposition home or self-care (01) ==
LOC: ER 18:38
DX: M54.50 Low back pain, unspecified (principal); G89.29 Other chronic pain; F41.9 Anxiety disorder, unspecified; F32.A Depression, unspecified; E28.2 Polycystic ovarian syndrome; Z98.84 Bariatric surgery status
CPT/HCPCS: 72131; 99283; J1885; J2360

== ENCOUNTER 2025-04-07 19:32 | Emergency (ER) | payer BC ==
[~2025-04-07] VITALS: Ht 180.3 cm; Wt 111.1 kg
[~2025-04-07 19:32] MED LIST changes: +DICYCLOMINE HCL20 MG PO; +NAPROSYN500 MG PO; +ONDANSETRON ODT4 MG PO; +ORPHENADRINE C100 MG PO; +PANTOPRAZOLE SO40 MG PO
[2025-04-07 20:20] VITALS: PULSE 66; RESP 17; TEMP 97.9
[2025-04-07] MEDS: ORPHENADRINE CITRATE 30 MG/ML VIAL IM ONE (21:59)
[2025-04-07 22:38] VITALS: BP 127/70; PULSE 58; RESP 17; TEMP 98.4; O2SAT 100
== END 2025-04-07 22:31 | disposition home or self-care (01) ==
LOC: ER 21:38
DX: M54.50 Low back pain, unspecified (principal); G89.29 Other chronic pain; F41.9 Anxiety disorder, unspecified; F32.A Depression, unspecified; E28.2 Polycystic ovarian syndrome; G83.4 Cauda equina syndrome; Z98.84 Bariatric surgery status
CPT/HCPCS: 99283; J2360